=== PATIENT | male | born 1985 | race Caucasian/White ===

== ENCOUNTER 2024-02-09 20:22 | Emergency (ER) | payer BC ==
[2024-02-09] MEDS ORDERED: ONDANSETRON 4 MG/2 ML VIAL ONE (20:58)
[2024-02-09] MEDS ORDERED: ASPIRIN 81 MG CHEWABLE TABLET ONE (20:59)
[2024-02-09] MEDS ORDERED: LORazepam 2 MG/ML VIAL ONE (20:59)
[2024-02-09 21:00] LABS: Absolute Eosinophils 0.2 K/uL (0-0.5); Absolute Lymphocytes (CBC) 0.3 K/uL (0.7-4.9); Absolute Monocytes 0.3 K/uL (0.1-1.3); Absolute Neutrophil 2.4 K/uL (1.8-8.0); Basophils % 0.2 % (0-1.3); Eosinophils % 5.8 % (0-4.4); Hematocrit 36.9 % (39.6-49.0); Lymphocytes % 8.4 % (15.3-44.8); MCH 31.7 pg (27.0-35.0); MCHC 35.1 g/dL (32.0-36.0); MCV 90.4 fL (80-100); MPV 8.2 fL (7.6-11.3); Monocytes % 9.5 % (3.3-12.3); Neutrophils % 76.1 % (41.7-73.7); Nucleated Red Blood Cells % 0.3 % (0-0); Platelets 148 thou/uL (152-406); RBC Red Blood Cell Count 4.09 M/uL (4.33-5.43)
[2024-02-09] MEDS ORDERED: NA CHLORIDE 0.9% 1,000 ML ONE (21:00)
[2024-02-09] MEDS ORDERED: FAMOTIDINE 20 MG/2 ML VIAL IV ONE (21:00)
[2024-02-09 21:10] LABS: Specific Gravity 1.005 (1.005-1.030); Sqamous Epithelial <5 /HPF (None Seen); Urine Bacteria <20 /HPF (<20); Urine Bilirubin NEGATIVE (Negative); Urine Blood Negative (Negative); Urine Clarity Clear (Clear); Urine Color Colorless (Yellow); Urine Culture Reflex Order NOT NEEDED; Urine Glucose NEGATIVE (Negative); Urine Ketones NEGATIVE (Negative); Urine Micro Reflex YN NO BILL MICROSCOPIC; Urine Mucus Slight /HPF (None Seen); Urine Nitrite NEGATIVE (Negative); Urine Protein NEGATIVE (Negative); Urine RBC <5 /HPF (None Seen); Urine Urobilinogen Normal (Normal); Urine WBC None Seen /HPF (<5); Urine pH 6.5 (5.0-7.0)
[2024-02-09 21:15] LABS: Barbiturates NEGATIVE (NEGATIVE); Benzodiazepines NEGATIVE (NEGATIVE); Cocaine NEGATIVE (NEGATIVE); METHAMPHETAM NEGATIVE (NEGATIVE); Methadone NEGATIVE (NEGATIVE); Opiates NEGATIVE (NEGATIVE); Phencyclidine NEGATIVE (NEGATIVE); THC Cannibis NEGATIVE (NEGATIVE)
[2024-02-09 21:20] LABS: PT Prothrombin Time 12.3 SECONDS (9.5-12.5); Protime INR 1.12
[2024-02-09 21:29] LABS: ALT/SGPT 55 U/L (16-61); AST/SGOT 33 U/L (15-37); Albumin 3.2 g/dL (3.4-5.0); Albumin/Globulin Ratio 0.9 (1.1-1.8); Alkaline Phosphatase 53 U/L (45-117); Anion Gap 13.4 mEq/L (5.0-15.0); BUN Blood Urea Nitrogen 8 mg/dL (7-18); Bicarbonate 21 mEq/L (21-32); Bilirubin Direct < 0.2 mg/dL (0-0.2); Bilirubin Indirect, Calculated 0.3 mg/dL (0.2-0.8); Bilirubin Total 0.5 mg/dL (0.2-1.0); Globulin 3.5 g/dL (2.3-3.5); Glomerular Filtration Rate 119 ml/min (=/>90); Glucose Level 113 mg/dL (74-106); Magnesium 1.6 mg/dL (1.6-2.4); NT PRO-BNP 12 pg/mL (<125); Potassium 3.4 mEq/L (3.5-5.1); Protein, Total 6.7 g/dL (6.4-8.2); Sodium Level 126 mEq/L (136-145); Troponin High Sensitivity 5.9 pg/mL (<58.9)
--- NOTE | 2024-02-09 22:35 | RAD REPORT ---
EXAM DESCRIPTION: CT - Abdomen Pelvis W Contrast - 02/09/2024 10:16 pm CLINICAL HISTORY: Epigastric pain COMPARISON: none. TECHNIQUE: Computed axial tomography of the abdomen pelvis was obtained. 100 cc Isovue-300 was admin istered intravenously. Oral contrast was not requested which limits evaluation of bowel and appendix All CT scans are performed using dose optimization technique as appropriate and may include automated exposure control or mA/KV adjustment according to patient size. FINDINGS: The liver, spleen, pancreas, adrenal and right kidney appear unremarkable. 2 millimeter calculus left kidney. No hydronephrosis There is no evidence of diverticulitis. An abnormal appendix is not visualized. Bladder distended Mild posterior subluxation L5 on S1 .spondylosis lumbar spine The wall of distal esophagus appears mildly thickened IMPRESSION: Bladder distention 2 millimeter nonobstructing left renal calculus Wall of distal esophagus appears mildly thickened. This may be secondary to incomplete distention or mild inflammation
--- NOTE | 2024-02-09 22:36 | RAD REPORT ---
EXAM DESCRIPTION: [facility] Single View02/09/2024 8:59 pm CLINICAL HISTORY: Abdominal pain COMPARISON: none FINDINGS: Lungs appear clear of acute infiltrate. Heart is normal size IMPRESSION: No acute abnormalities displayed
--- NOTE | 2024-02-09 23:26 | EDPHYS ---
Physician Documentation [facility] Name: Jose Meyers Age: 38 yrs Sex: Male : 1985 Arrival Date: 02/09/2024 Time: 20:22 Bed 16 Private MD: ED Physician Ray Fabian HPI: 02/08 20:45 This 38 yrs old Male presents to ER via Ambulatory with complaints of Chest Pain, cp Shortness Of Breath. 20:45 The patient presents with lower sternal and epigastric pressure. cp 20:45 Onset: The symptoms/episode began/occurred today. cp 20:45 The symptoms do not radiate. Associated signs and symptoms: Pertinent positives: cp nausea, shortness of breath, palpitations, near syncope, Pertinent negatives: constipation, diarrhea, fever, vomiting. The symptoms are described as pressure, "feels like I'm bloated". Severity of pain: in the emergency department the pain is unchanged despite home interventions. Historical: - Allergies: 20:36 No Known Allergies; vc1 - Home Meds: 20:36 lisinopril 20 mg Oral tablet [Active]; vc1 - PMHx: 20:36 Hypertensive disorder; vc1 - PSHx: 20:36 None; vc1 - Immunization history:: Client reports receiving the 2nd dose of the Covid vaccine, Flu vaccine is not up to date. - Infectious Disease History:: Denies. - Social history:: Smoking status: Reported history of juuling and/or vaping. ROS: 20:50 Constitutional: Negative for body aches, chills, fever, poor PO intake, cp 20:50 Eyes: Negative for injury, pain, redness, and discharge, cp 20:50 ENT: Negative for drainage from ear(s), ear pain, sore throat, difficulty swallowing, difficulty handling secretions, 20:50 Cardiovascular: Positive for palpitations, Negative for edema, 20:50 Respiratory: Positive for shortness of breath, Negative for cough, wheezing, 20:50 Abdomen/GI: Positive for nausea, of the epigastric area, pressure, Negative for vomiting, diarrhea, constipation, 20:50 Back: Negative for pain at rest, pain with movement, radiated pain, 20:50 Neuro: Positive for near syncope, Negative for altered mental status, headache, weakness, 20:50 All other systems are negative, Exam: 20:25 ECG was reviewed by the Attending Physician. cp 20:55 Constitutional: The patient appears in no acute distress, alert, awake, cp non-diaphoretic, non-toxic, well developed, well nourished, anxious, uncomfortable, 20:55 Head/Face: Normocephalic, atraumatic. cp 20:55 Eyes: Periorbital structures: appear normal, Conjunctiva: normal, no exudate, no injection, Sclera: no appreciated abnormality, Lids and lashes: appear normal, bilaterally, 20:55 ENT: External ear(s): are unremarkable, Nose: is normal, Mouth: Lips: moist, Oral mucosa: pink and intact, moist, Posterior pharynx: is normal, airway is patent, no erythema, no exudate, 20:55 Chest/axilla: Inspection: normal, Palpation: is normal, no crepitus, no tenderness, 20:55 Cardiovascular: Rate: tachycardic, Rhythm: regular, Edema: is not appreciated, JVD: is not appreciated, 20:55 Respiratory: the patient does not display signs of respiratory distress, Respirations: normal, no use of accessory muscles, no retractions, labored breathing, is not present, Breath sounds: are clear throughout, no decreased breath sounds, no stridor, no wheezing, 20:55 Abdomen/GI: Inspection: abdomen appears normal, Bowel sounds: active, all quadrants, Palpation: soft, in all quadrants, mild abdominal tenderness, in the epigastric area, 20:55 Neuro: Orientation: to person, place \\T\\ time. Mentation: is normal, Motor: moves all fours, strength is normal, Vital Signs: 20:50 BP 137 / 81; Pulse 98; Resp 20; Temp 97.9; Pulse Ox 95% ; Weight 88.45 kg; Height 5 ft. vc1 9 in. ; Pain 0/10; 23:12 BP 113 / 79; Pulse 86; Resp 21; Pulse Ox 92% ; ty 20:50 Body Mass Index 28.80 (88.45 kg, 175.26 cm) vc1 20:50 Pain Scale: Adult vc1 MDM: 20:37 Patient medically screened. cp 23:25 Data reviewed: vital signs, nurses notes, lab test result(s), EKG, radiologic studies, cp CT scan, plain films. 23:25 Differential diagnosis: acute coronary syndrome, bowel obstruction, cholecystitis, cp Cholelithiasis, diverticulitis, gastritis, gastroesophageal reflux disease, GI Bleed, pancreatitis, Peptic Ulcer Disease, Perf. Duodenal Ulcer, Perf. Gastric Ulcer. I considered the following discharge prescriptions or medication management in the emergency department Medications were administered in the Emergency Department. See MAR. Counseling: I had a detailed discussion with the patient and/or guardian regarding the historical points, exam findings, and any diagnostic results supporting the discharge/admit diagnosis, lab results, radiology results, the need for outpatient follow up, a family practitioner, a tray line worker, to return to the emergency department if symptoms worsen or persist or if there are any questions or concerns that arise at home. Response to treatment: the patient's symptoms have markedly improved after treatment, and as a result, I will discharge patient. 02/08 20:39 Order name: Basic Metabolic Panel; Complete Time: 21:52 cp 02/08 22:43 Interpretation: Normal except: NA 126; K 3.4; CL 95; GLUC 113; CA 8.2. cp 02/08 20:39 Order name: CBC with Diff; Complete Time: 21:52 cp /02 22:44 Interpretation: WBC 3.10; RBC 4.09; HGB 13.0; HCT 36.9; PLT 148; PIPER% 76.1; LYM% 8.4; cp EOSINOPHIL % 5.8; LYMA 0.3. 02/08 20:39 Order name: LFT's; Complete Time: 21:52 cp 02 22:44 Interpretation: Normal except: ALB 3.2; A/G 0.9. cp /02 20:39 Order name: Magnesium; Complete Time: 21:52 cp /02 20:39 Order name: NT PRO-BNP; Complete Time: 21:52 cp /02 20:39 Order name: PT-INR; Complete Time: 21:52 cp /02 20:39 Order name: Troponin HS; Complete Time: 21:52 cp /02 20:39 Order name: Urinalysis W/Microscopic; Complete Time: 21:52 cp /02 20:39 Order name: UDS; Complete Time: 21:52 cp /02 20:39 Order name: XRAY Chest (1 view); Complete Time: 22:42 cp 06/02 22:45 Interpretation: Report review. 02/08 20:40 Order name: CT Abd/Pelvis - IV Contrast Only; Complete Time: 22:42 cp 02/08 22:46 Interpretation: Report reviewed. 02/08 20:39 Order name: Cardiac monitoring; Complete Time: 21: 02/08 20:39 Order name: EKG - Nurse/Tech; Complete Time: 21: 02/08 20:39 Order name: IV Saline Lock; Complete Time: 21: 02/08 20:39 Order name: Labs collected and sent; Complete Time: 21: 02/08 20:39 Order name: O2 Per Protocol; Complete Time: 21: 02/08 20:39 Order name: O2 Sat Monitoring; Complete Time: 21: 02/08 22:47 Order name: Bladder Scanner: pre and post void; Complete Time: 23:23 cp EC:25 Rate is 106 beats/min. Rhythm is regular. MS interval is normal. QRS interval is cp prolonged at 102 msec. QT interval is normal. T waves are Inverted in leads I, aVL. Interpreted by me. Reviewed by me. Administered Medications: 21:08 Drug: Aspirin PO Chewable Tablet 324 mg PO once; 81 mg tablets x 4 Route: PO; lg3 23:38 Follow up: Response: No adverse reaction lg3 21:08 Drug: Famotidine IVP 20 mg IVP once; dilute with 10 mL 0.9% NaCl; give over 2 minutes lg3 Route: IVP; Site: right forearm; 23:38 Follow up: Response: No adverse reaction lg3 21:08 Drug: Ondansetron IVP 4 mg IVP once; over 2 minutes Route: IVP; Site: right forearm; lg3 23:38 Follow up: Response: No adverse reaction lg3 21:08 Drug: Ativan IVP 1 mg IVP once Route: IVP; Site: right forearm; lg3 23:38 Follow up: Response: No adverse reaction; Marked relief of symptoms; Anxiety decreased lg3 21:08 Drug: NS 0.9% IV 1000 ml IV at 1 bolus Per protocol; 1000 mL bolus Route: IV; Rate: 1 lg3 bolus; Site: right forearm; 23:38 Follow up: Response: No adverse reaction; IV Intake: 1000ml lg3 Disposition: 02/09 03:12 Co-signature as Attending Physician, Ray Fabian MD I reviewed the patient's care rt provided by the Advanced Practice Provider and agree with the diagnosis and treatment plan. Disposition Summary: 02/09/24 23:26 Discharge Ordered Notes: Location: Home cp Problem: new cp Symptoms: have improved cp Condition: Stable cp Diagnosis - Epigastric abdominal tenderness cp - Hypo-osmolality and hyponatremia cp - Hypokalemia cp - Palpitations cp Followup: cp - With: Private Physician - When: 2 - 3 days - Reason: Recheck today's complaints Discharge Instructions: - Discharge Summary Sheet cp - Potassium Content of Foods cp - Esophagitis cp - Palpitations cp - Aspirin and Your Heart cp - Hypokalemia cp Forms: - Medication Reconciliation Form cp - Antibiotic Education cp - Prescription Opioid Use cp - Patient Portal Instructions cp - Leadership Thank You Letter cp Prescriptions: - Protonix 40 mg Oral Tablet - take 1 tablet ORAL route once daily; 30 tablet; Refills: 0, Product Selection cp Permitted Signatures: Dispatcher [employer] EDMS Nam Esteban PA PA cp Able, Lacie RN RN lg3 Denisse Barbosa RN RN vc1 Ray Fabian MD MD rt Corrections: (The following items were deleted from the chart) 02/08 20:39 20:39 BASIC METABOLIC PANEL+C.LAB.BRZ ordered. EDMS EDMS 20:39 20:39 CBC+H.LAB.BRZ ordered. EDMS EDMS 20:39 20:39 HEPATIC FUNCTION+C.LAB.BRZ ordered. EDMS EDMS 20:39 20:39 MAGNESIUM+C.LAB.BRZ ordered. EDMS EDMS 20:39 20:39 PROBNP+C.LAB.BRZ ordered. EDMS EDMS 20:39 20:39 PROTIME (+INR)+COAG.LAB.BRZ ordered. EDMS EDMS 20:39 20:39 Troponin High Sensitivity+C.LAB.BRZ ordered. EDMS EDMS 20:39 20:39 Urinalysis W/Microscopic+U.LAB.BRZ ordered. EDMS EDMS 20:39 20:39 URINE DRUG SCREEN+UC.LAB.BRZ ordered. EDMS EDMS 20:39 20:39 Chest Single View+RAD.RAD.BRZ ordered. EDMS EDMS 20:58 20:39 Angio Aorta For Dissection+CT.RAD.BRZ ordered. EDMS EDMS
--- NOTE | 2024-02-09 23:26 | ER ---
Nurse's Notes [facility] Name: Jose Meyers Age: 38 yrs Sex: Male : 1985 Arrival Date: 02/09/2024 Time: 20:22 Bed 16 Private MD: Diagnosis: Epigastric abdominal tenderness;Hypo-osmolality and hyponatremia;Hypokalemia;Palpitations Presentation: 02/08 20:50 Chief complaint: Patient states: Chest pressure and indigestion, "I can feel my heart vc1 racing and I'm nauseous. I think something is wrong with my stomach, I feel like I'm gonna pass out.". Coronavirus screen: Client denies travel out of the [place] in the last 14 days. At this time, the client does not indicate any symptoms associated with coronavirus-19. Ebola Screen: Patient negative for fever greater than or equal to 101.5 degrees Fahrenheit, and additional compatible Ebola Virus Disease symptoms Patient denies exposure to infectious person. Patient denies travel to an Ebola-affected area in the 21 days before illness onset. No symptoms or risks identified at this time. Initial Sepsis Screen: Does the patient meet any 2 criteria? No. Patient's initial sepsis screen is negative. Does the patient have a suspected source of infection? No. Patient's initial sepsis screen is negative. Risk Assessment: Do you want to hurt yourself or someone else? Patient reports no desire to harm self or others. Onset of symptoms was February 09, 2024. 20:50 Method Of Arrival: Ambulatory vc1 20:50 Acuity: JAYDEN 3 vc1 Triage Assessment: 21:02 General: Appears distressed, Behavior is anxious. Pain: Denies pain. EENT: No deficits vc1 noted. No signs and/or symptoms were reported regarding the EENT system. Neuro: Level of Consciousness is awake, alert, obeys commands, Oriented to person, place, time, situation, Appropriate for age. Cardiovascular: Reports fatigue, nausea, palpitations, shortness of breath, Chest tightness Denies chest pain, Heart tones S1 S2 Capillary refill < 3 seconds Rhythm is sinus tachycardia Chest pain is described as pressure. Respiratory: Airway is patent Respiratory effort is even, unlabored, Respiratory pattern is regular, symmetrical, Breath sounds are clear. Derm: Skin is intact, Skin is diaphoretic. Historical: - Allergies: 20:36 No Known Allergies; vc1 - Home Meds: 20:36 lisinopril 20 mg Oral tablet [Active]; vc1 - PMHx: 20:36 Hypertensive disorder; vc1 - PSHx: 20:36 None; vc1 - Immunization history:: Client reports receiving the 2nd dose of the Covid vaccine, Flu vaccine is not up to date. - Infectious Disease History:: Denies. - Social history:: Smoking status: Reported history of juuling and/or vaping. Screenin:36 [facility] ED Fall Risk Assessment (Adult) History of falling in the last 3 months, vc1 including since admission No falls in past 3 months (0 pts) Confusion or Disorientation No (0 pts) Intoxicated or Sedated No (0 pts) Impaired Gait No (0 pts) Mobility Assist Device Used No (0 pt) Altered Elimination No (0 pt) Score/Fall Risk Level 0 - 2 = Low Risk Oriented to surroundings, Maintained a safe environment, Educated pt \\T\\ family on fall prevention, incl call for assistance when getting out of bed. Abuse screen: Denies threats or abuse. Nutritional screening: No deficits noted. Tuberculosis screening: No symptoms or risk factors identified. Assessment: 20:21 General: Pt walked straight back to the ER before registering approached ER Provider vc1 and said I am having chest pain. Pt placed in Chair for EKG.. 21:09 General: Appears in no apparent distress. Behavior is anxious, fussy, restless. Pain: lg3 Complains of pain in chest and abdomen Pain does not radiate. Pain began 2 hours ago. Neuro: Fajardo Agitation-Sedation Scale (RASS): +1 Restless Level of Consciousness is awake, alert, obeys commands, Oriented to person, place, time, situation. Cardiovascular: No deficits noted. Reports chest pain, fatigue, lightheadedness, palpitations, shortness of breath, Heart tones S1 S2 present Capillary refill < 3 seconds Clubbing of nail beds is absent JVD is absent Patient's skin is warm and dry. Respiratory: No deficits noted. Reports shortness of breath Airway is patent Respiratory effort is even, unlabored, Respiratory pattern is regular, symmetrical, Breath sounds are clear bilaterally. GI: No deficits noted. Abdomen is round non-distended, Bowel sounds present X 4 quads. Abd is soft and non tender X 4 quads. Reports lower abdominal pain, upper abdominal pain, constipation, cramping, diarrhea, epigastric pain, flatulence, gaseousness, indigestion, nausea. : No deficits noted. No signs and/or symptoms were reported regarding the genitourinary system. Urine is clear. EENT: No deficits noted. No signs and/or symptoms were reported regarding the EENT system. Derm: No deficits noted. No signs and/or symptoms reported regarding the dermatologic system. Skin is intact, is healthy with good turgor, Skin is dry, Skin is normal, Skin temperature is warm. Musculoskeletal: No deficits noted. Circulation, motion, and sensation intact. Range of motion: intact in all extremities. 23:23 Reassessment: Patient appears in no apparent distress at this time. Patient and/or lg3 family updated on plan of care and expected duration. Pain level reassessed. Patient is alert, oriented x 3, equal unlabored respirations, skin warm/dry/pink. Patient states symptoms have improved. General: post void residual 288ml. 23:38 Reassessment: Patient appears in no apparent distress at this time. Patient and/or lg3 family updated on plan of care and expected duration. Pain level reassessed. Patient is alert, oriented x 3, equal unlabored respirations, skin warm/dry/pink. Patient states feeling better. Patient states symptoms have improved. Vital Signs: 20:50 BP 137 / 81; Pulse 98; Resp 20; Temp 97.9; Pulse Ox 95% ; Weight 88.45 kg; Height 5 ft. vc1 9 in. ; Pain 0/10; 23:12 BP 113 / 79; Pulse 86; Resp 21; Pulse Ox 92% ; ty 20:50 Body Mass Index 28.80 (88.45 kg, 175.26 cm) vc1 20:50 Pain Scale: Adult vc1 ED Course: 20:34 Patient arrived in ED. gm2 20:34 Nam Esteban PA is PHCP. cp 20:34 Ray Fabian MD is Attending Physician. cp 20:36 Arm band placed on right wrist. vc1 20:52 Kaur Lopez, ADRIEL is Primary Nurse. lg3 20:54 Triage completed. vc1 21:00 XRAY Chest (1 view) In Process Unspecified. EDMS 21:07 Inserted saline lock: 20 gauge in right forearm, using aseptic technique. Blood lg3 collected. 21:07 Initial lab(s) drawn, by ED staff, sent to lab. Urine collected: clean catch specimen, lg3 clear, EKG done, by ED staff, reviewed by Nam ESQUIVEL. 21:08 UDS Sent. lg3 21:08 Urinalysis W/Microscopic Sent. lg3 21:09 Patient has correct armband on for positive identification. Placed in gown. Bed in low lg3 position. Call light in reach. Side rails up X 1. Client placed on continuous cardiac and pulse oximetry monitoring. NIBP monitoring applied. air sampling and monitoring on. Door closed. Noise minimized. Warm blanket given. Pillow given. 21:09 Basic Metabolic Panel Sent. lg3 21:09 CBC with Diff Sent. lg3 21:09 LFT's Sent. lg3 21:09 Magnesium Sent. lg3 21:09 NT PRO-BNP Sent. lg3 21:09 PT-INR Sent. lg3 21:09 Troponin HS Sent. lg3 21:09 O2 via room air. lg3 22:17 CT Abd/Pelvis - IV Contrast Only In Process Unspecified. EDMS 23:30 IV discontinued, intact, bleeding controlled, No redness/swelling at site. Pressure ty dressing applied. 23:43 No provider procedures requiring assistance completed. lg3 Administered Medications: 21:08 Drug: Aspirin PO Chewable Tablet 324 mg PO once; 81 mg tablets x 4 Route: PO; lg3 23:38 Follow up: Response: No adverse reaction lg3 21:08 Drug: Famotidine IVP 20 mg IVP once; dilute with 10 mL 0.9% NaCl; give over 2 minutes lg3 Route: IVP; Site: right forearm; 23:38 Follow up: Response: No adverse reaction lg3 21:08 Drug: Ondansetron IVP 4 mg IVP once; over 2 minutes Route: IVP; Site: right forearm; lg3 23:38 Follow up: Response: No adverse reaction lg3 21:08 Drug: Ativan IVP 1 mg IVP once Route: IVP; Site: right forearm; lg3 23:38 Follow up: Response: No adverse reaction; Marked relief of symptoms; Anxiety decreased lg3 21:08 Drug: NS 0.9% IV 1000 ml IV at 1 bolus Per protocol; 1000 mL bolus Route: IV; Rate: 1 lg3 bolus; Site: right forearm; 23:38 Follow up: Response: No adverse reaction; IV Intake: 1000ml lg3 Medication: 23:44 VIS not applicable for this client. lg3 Intake: 23:38 IV: 1000ml; Total: 1000ml. lg3 Outcome: 23:26 Discharge ordered by MD. cp 23:43 Discharged to home ambulatory, with significant other, lg3 23:43 Condition: stable 23:43 Discharge instructions given to patient, Instructed on discharge instructions, follow up and referral plans. medication usage, Demonstrated understanding of instructions, follow-up care, medications, Prescriptions given X 1, 23:44 Patient left the ED. lg3 Signatures: Dispatcher [employer] EDMS Nam Esteban PA PA cp Able, Lacie RN RN lg3 Denisse Barbosa RN RN vc1 Annetta Sotelo gm2 Demario Villafuerte ty
[2024-02-10 00:33] VITALS: BP 137/81; TEMP 97.9; O2SAT 95
--- NOTE | 2024-02-10 14:07 | EKG ---
Test Date: 2024-02-09 Test Time: 20:19:06 Professor [employer]: MICHELLE MEASUREMENT RESULTS: Intervals: Rate: 106 VA: 134 QRSD: 102 QT: 338 QTc: 448 [place]: P: VA: 134 QRS: 220 T: 156 INTERPRETIVE STATEMENTS: Sinus tachycardia Otherwise normal ECG No previous ECG available for comparison Electronically Signed On 02-10-24 14:04:43 CDT by Timoteo Varela
== END 2024-02-09 23:44 | disposition home or self-care (01) ==
LOC: ER 20:22
DX: R10.816 Epigastric abdominal tenderness (principal); R00.2 Palpitations; E87.1 Hypo-osmolality and hyponatremia; E87.6 Hypokalemia; I10 Essential (primary) hypertension; Z79.899 Other long term (current) drug therapy
CPT/HCPCS: 93005; 85025; 81001; 80048; 36415; 83735; 85610; 80076; 84484; 83880; 80307; 74177; 71045; 96375; 96374; 99285; Q9967; J2405; J7030